=== PATIENT | female | born 1940 | race Hispanic/Latino ===

== ENCOUNTER 2018-11-07 14:07 | Inpatient (IN) | payer MEDICARE ==
[~2018-11-07] VITALS: Ht 147.3 cm; Wt 65.8 kg
[2018-11-07] MEDS ORDERED: SIMVASTATIN20 MG PO (14:39)
[2018-11-07] MEDS ORDERED: DORZOLAMIDE-TIM10 ML OP (14:39)
[2018-11-07] MEDS ORDERED: ASPIR 8181 MG PO (14:39)
[2018-11-07] MEDS ORDERED: LUMIGAN2.5 M1 OP (14:39)
[2018-11-07] MEDS ORDERED: BISOPROLOL HCTZ (14:39)
--- NOTE | 2018-11-07 15:22 | Diagnostic Imaging Report ---
ADDENDUM #1 Agree with the preliminary report. Signed by: DR Jairon Sinha M.D. on 11/07/2018 6:36 PM ORIGINAL REPORT Exam: Noncontrast Head CT History: 78-year-old female with dizziness and shakes Comparison studies: None Technique: Axial images were obtained from the skull base to the vertex. Coronal and sagittal reconstructions obtained from the axial data. Dose modulation, iterative reconstruction, and/or weight based adjustment of the mA/kV was utilized to reduce the radiation dose to as low as reasonably achievable. Findings: Scalp/skull: No abnormalities. No fractures, blastic or lytic lesions. Extra-axial spaces: No masses. No fluid collections. Brain sulci: Appropriate for age. Ventricles: Normal in size and configuration. No hydrocephalus. Parenchyma: Mild diffuse subcortical and periventricular white matter hypodensities specific, however likely represents sequela microvascular ischemic angiopathy. No masses, hemorrhage, acute or chronic cortical vascular insults. Sellar/suprasellar region: No abnormalities Craniocervical junction: Patent foramen magnum. No Chiari one malformation. IMPRESSION: No acute abnormalities. Chronic findings: Mild chronic white matter microvascular ischemic changes. Report dictated by neuroradiology fellow. Final read to follow. Signed by: Augustus David MD on 11/07/2018 4:32 PM
--- NOTE | 2018-11-07 15:49 | NUR ---
CALLED [facility] FOR TRANSPORT Addendum: 11/07/18 at 1550 by AG SPOKE TO ALISA MYERS
--- NOTE | 2018-11-07 17:37 | NUR ---
2 ATTMEPTS AT REPORT
[2018-11-07] MEDS ORDERED: ONDANSETRON HCL INJ 2MG/ML 2ML 2 MG/ML VIAL IV PRN (18:00)
[2018-11-07] MEDS ORDERED: ACETAMINOPHEN 325 MG TAB PO PRN (18:00)
[2018-11-07] MEDS ORDERED: HYDRALAZINE HCL 20 MG/ML VIAL IV PRN (18:00)
[2018-11-07 18:29] VITALS: BP 177/78
[2018-11-07 19:09] VITALS: BP 136/61
[2018-11-07 19:11] VITALS: BP 136/61
[2018-11-07] MEDS: BIMATOPROST(OPTH) 2.5 ML BOTTLE OP SCH (20:30)
[2018-11-07] MEDS: SIMVASTATIN 20 MG TAB PO SCH (20:30)
[2018-11-07 20:48] VITALS: BP 136/61
[2018-11-08] VITALS (7 sets, daily range): BP systolic 120–172; BP diastolic 57–73
[2018-11-08 03:43] LABS: BASOPHILS % 0.3 % (0.0-1.0); EOSINOPHILS # (AUTO) 0.4 (0.0-0.4); EOSINOPHILS % 3.5 % (0.0-6.0); HEMATOCRIT 38.4 % (34.2-44.1); HEMOGLOBIN 12.6 g/dL (12.0-16.0); LYMPHOCYTES # (AUTO) 2.9 (1.0-3.2); LYMPHOCYTES % 26.5 % (18.0-39.1); MEAN CORPUSCULAR HEMOGLOBIN 30.7 pg (28-32); MEAN CORPUSCULAR HGB CONC 32.8 g/dL (31-35); MEAN CORPUSCULAR VOLUME 93.7 fL (81-99); MONOCYTES # (AUTO) 0.9 (0.2-0.8); MONOCYTES % 8.4 % (4.4-11.3); NEUTROPHILS # (AUTO) 6.7 (2.1-6.9); NEUTROPHILS % 60.8 % (38.7-80.0); PLATELET COUNT 212 x10e3/uL (140-360); RED CELL DISTRIBUTION WIDTH 13.2 % (11.7-14.4)
[2018-11-08 03:59] LABS: ALANINE AMINOTRANSFERASE 16 IU/L (0-55); ALBUMIN 3.5 g/dL (3.5-5.0); ALBUMIN/GLOBULIN RATIO 0.9 (0.8-2.0); ALKALINE PHOSPHATASE 100 IU/L (40-150); ANION GAP 13.2 mmol/L (8-16); BLOOD UREA NITROGEN 20 mg/dL (7-26); BUN/CREATININE RATIO 28 (6-25); CALCIUM 9.7 mg/dL (8.4-10.2); CARBON DIOXIDE 25 mmol/L (22-29); CHLORIDE 105 mmol/L (98-107); CHOL/HDL RATIO 2.1 (3.0-3.6); CREATININE, SERUM 0.72 mg/dL (0.57-1.11); EST GLOMERULAR FILTRATION RATE > 60 ML/MIN (60-); GLUCOSE 108 mg/dL (74-118); MAGNESIUM 2.4 MG/DL (1.3-2.1); POTASSIUM 4.2 mmol/L (3.5-5.1); SODIUM 139 mmol/L (136-145)
[2018-11-08 04:06] LABS: B-TYPE NATRIURETIC PEPTIDE2 61.4 pg/mL (0-100)
[2018-11-08 04:21] LABS: FREE T4 (FREE THYROXINE) 1.15 ng/dL (0.9-1.8); THYROID STIMULATING HORMONE 2.521 uIU/mL (0.350-4.940)
[2018-11-08] MEDS ORDERED: BISOPROLOL-HCT1 EAC1 PO (06:26)
[2018-11-08] MEDS ORDERED: GABAPENTIN100 MG PO (06:26)
--- NOTE | 2018-11-08 06:50 | NUR ---
report given to day nurse. patient is resting in bed. bed is in lowest position and call otero is within reach.
[2018-11-08] MEDS ORDERED: SODIUM CHLORIDE 0.9% 250ML 250 ML ONE (06:57)
[2018-11-08] MEDS: CEFTRIAXONE SOD 1 GM/NS 50 ML 50 ML IV SCH (07:14)
[2018-11-08 07:19] LABS: CLARITY,URINE SL CLOUDY (CLEAR); COLOR,URINE YELLOW (YELLOW)
[2018-11-08 07:20] LABS: BILIRUBIN,URINE NEGATIVE (NEGATIVE); KETONES,URINE NEGATIVE (NEGATIVE); LEUKOCYTE ESTERASE ,URINE 1+ (NEGATIVE); NITRITE,URINE POSITIVE (NEGATIVE); PROTEIN,URINE DIPSTICK TRACE (NEGATIVE); URINE UROBILINOGEN 0.2 mg/dL (0.2 - 1)
[2018-11-08 07:51] LABS: BACTERIA,URINE MANY /HPF; WBC,URINE (MAN) 21-50 /HPF (0-5)
[2018-11-08 07:52] LABS: MUCUS,URINE FEW (RARE)
--- NOTE | 2018-11-08 08:10 | Diagnostic Imaging Report ---
Examination: Single AP view of the chest. COMPARISON: None. INDICATION: Dizziness, vertigo, rule out pneumonia IMPRESSION: 1. Lines and Tubes: None 2. Lungs are grossly clear. No consolidation or effusion. 3. Cardiomediastinal silhouette is normal. Pulmonary vasculature is normal. 4. No acute bony abnormalities. Signed by: Dr. Shivam Espinoza M.D. on 11/08/2018 8:07 AM
[2018-11-08] MEDS ORDERED: BISOPROLOL/HCTZ 5/6.25MG TAB PO SCH (09:00)
[2018-11-08] MEDS: ASPIRIN 325 MG TAB PO SCH (09:03)
[2018-11-08] MEDS: GABAPENTIN 100 MG CAP PO SCH ×3 (09:03→21:50)
[2018-11-08] MEDS: FAMOTIDINE 20 MG TAB PO SCH ×2 (09:03→16:25)
[2018-11-08] MEDS: LORATADINE 10 MG TAB PO SCH (09:03)
[2018-11-08] MEDS: GUAIFENESIN 600 MG TAB PO SCH ×2 (09:03→16:25)
[2018-11-08] MEDS: DORZOLAMIDE/TIMOLOL/PF 1 EACH DROPERETTE OP SCH ×2 (09:08→16:25)
[2018-11-08 11:18] LABS: CREATINE KINASE MB 0.8 ng/mL (0-5.0)
--- NOTE | 2018-11-08 12:34 | Diagnostic Imaging Report ---
History: Dizziness, vertigo Comparison studies: Head CT of 11/07/2018 Technique: Sagittal T2; axial DWI, FLAIR, MPGR, T1, Coronal FLAIR. Intravenous contrast: None Findings: Scalp: Normal in signal . No masses . Bone marrow: Normal in signal intensity. Extra-axial: No masses or fluid collections. Brain sulci: Appropriate for age. Ventricles: Normal in size . No hydrocephalus . Parenchyma: Confluent T2 FLAIR hyperintense foci in the supratentorial periventricular white matter, multiple discrete foci in the adjacent deep white matter and additional foci in the mary grace are nonspecific small vessel ischemic changes. No masses, hemorrhage, acute or chronic cortical ischemic insults. Suprasellar region: No abnormalities. Craniocervical junction: No abnormalities. Patent foramen magnum. No Chiari one malformation. Vessels: Normal flow-voids in the arteries and sinuses. IMPRESSION: 1. Moderate supratentorial white matter small vessel ischemic changes. 2. Otherwise, no abnormalities. Signed by: Dr. Ellis Sanford M.D. on 11/08/2018 12:31 PM
[2018-11-08] MEDS ORDERED: ONDANSETRON HCL 4 MG ORAL DISINTEGRATING TAB PO PRN (16:00)
[2018-11-08] MEDS: BISOPROLOL/HCTZ 5/6.25MG TAB PO SCH (16:17)
--- NOTE | 2018-11-08 18:25 | Consultation ---
DATE OF CONSULTATION: 11/08/2018 Neurology Consult Note HISTORY OF PRESENT ILLNESS: Ms. Vega is a 78-year-old right-hand dominant woman with past medical history significant for hypertension and hyperlipidemia, admitted to [facility] on November 07, 2018 with dizziness. Beginning approximately 2 days prior to admission, the patient began to experience intermittent dizziness, which is further described as vertiginous sensation. The vertiginous sensation is triggered by movements. Specifically, sitting up, lying down, or turning to the right, especially when these movements are done quickly. When present, the vertiginous sensation persists for approximately 1 minute or less. There is no blurred vision associated with the vertigo. Ms. Vega does report multiple instances of nausea without vomiting associated with the vertigo. Ms. Vega has experienced similar symptoms previously. When she previously experienced these symptoms, Ms. Vega was instructed to perform a certain maneuver to bring about resolution of the symptoms. The patient did attempt performing this maneuver, but it only worsened her vertigo. For the past 1 month, the patient has experienced a sensation of fullness behind the right ear. Ms. Vega endorses rhinorrhea with postnasal drip. She does not report fever or chills, productive cough, or tinnitus. Ms. Vega does report intermittent wheezing. She does not report recent falls. Ms. Vega has seen her primary care physician twice in the past month regarding the above symptoms. Initially, she was given medication for seasonal allergies, but this did not improve her symptoms. More recently, the patient was given an albuterol inhaler to use on an as-needed basis for wheezing. The patient presented to the emergency center at [facility] on November 07, 2018 for further evaluation of her symptoms. Upon arrival in the emergency center, the patient was afebrile with a blood pressure of 167/71 mmHg and a pulse of 77 beats per minute. Her neurological examination was documented as being nonfocal. A CT of the brain without contrast was performed while the patient was in the emergency center. This study did not reveal evidence of recent large territorial ischemia or hemorrhage. Ms. Vega was admitted to [facility] under observation status for further evaluation and treatment of her symptoms. REVIEW OF SYSTEMS: Bilateral hearing loss (chronic), nausea, rhinorrhea, postnasal drip, dizziness further described as a vertiginous sensation. Otherwise, a 12-point review of systems is negative. PAST MEDICAL HISTORY: Hypertension, hyperlipidemia, fatty liver disease, glaucoma, bilateral cataracts. PAST SURGICAL HISTORY: Appendectomy, right trigger finger release, hysterectomy, colonoscopy. PAST HOSPITALIZATIONS: Surgeries/procedures as listed, head injury/concussion 2 years ago. FAMILY MEDICAL HISTORY: Diabetes mellitus, coronary artery disease, congestive heart failure, Parkinson disease. SOCIAL HISTORY: The patient is . She is retired. The patient does not report current or prior tobacco, alcohol, or recreational drug use. HOME MEDICATIONS: Aspirin 81 mg by mouth daily, bisoprolol/hydrochlorothiazide 5-6.25 mg one tablet by mouth daily, simvastatin 20 mg by mouth at bedtime daily, gabapentin 100 mg by mouth three times daily, Lumigan 2.5 mL in both eyes at bedtime daily, dorzolamide/timolol one drop in each eye twice daily. HOSPITAL MEDICATIONS: Tylenol, aspirin, Lumigan, ceftriaxone, Pepcid, Neurontin, Mucinex, hydralazine, loratadine, dorzolamide/timolol, Zofran, simvastatin. ALLERGIES: PENICILLIN, CODEINE, PHENOBARBITAL. NO KNOWN FOOD ALLERGIES. NO KNOWN ALLERGIES TO LATEX. NO KNOWN ALLERGIES TO IODINE OR OTHER CONTRAST MATERIALS. PHYSICAL EXAMINATION: VITAL SIGNS: Height 58 inches, weight 145 pounds, BMI 30.3 kg/m2, blood pressure 172/73 mmHg, pulse 68 beats per minute, respiratory rate 20 breaths per minute, and oxygen saturation 97% on room air. GENERAL: The patient is awake and alert, does not appear distressed. Overweight. HEENT: Normocephalic, atraumatic. Pupils are equal, round, and reactive to light. Moist mucous membranes. NECK: Supple. No appreciable thyromegaly. No appreciable carotid bruits. CARDIOVASCULAR: S1, S2, regular rate and rhythm. No murmurs, rubs, or gallops. RESPIRATORY: Clear to auscultation bilaterally. No wheezes, rhonchi, or rales. EXTREMITIES: The skin is warm and dry. No clubbing, cyanosis, or edema. The posterior tibial and dorsalis pedis pulses are 2+ and symmetric. SKIN: No rashes or lesions. NEUROLOGIC: Memory/Attention: The patient is awake and alert, oriented to person, place, time, and situation. Cranial Nerves: Cranial nerve I - not tested. Cranial nerve II, III, IV, and - pupils are equal and round, react briskly to light (from 4 mm to 2 mm). Extraocular movements intact. No nystagmus. Cranial nerve V - sensation to light touch and pinprick is intact in the bilateral V1 through V3 distributions. Strength in the temporalis and masseter muscles are within normal limits. Cranial nerve VII - the face is symmetric as are all facial movements. Strength is within normal limits. Cranial nerve VIII - hearing is diminished to finger rub bilaterally. Cranial nerve IX, X - the soft palate elevates equally and symmetrically. Cranial nerve XI - normal strength of the bilateral sternocleidomastoid and trapezius muscles. Cranial nerve XII - the tongue protrudes midline and moves symmetrically from moxy-qb-qmun. STRENGTH: Bulk is normal . Strength is 5/5 in the bilateral deltoids, biceps, triceps, wrist flexors and extensors, finger flexors and extensors, intrinsic hand muscles, hip flexors, knee flexors and extensors, ankle dorsiflexion and plantar flexion, and intrinsic foot muscles. Tone is normal. DEEP TENDON REFLEXES: Deep tendon reflexes are 2+ and symmetric at the triceps, biceps, brachioradialis, and patellas. Deep tendon reflexes are 1+ and symmetric at the Achilles. Plantar responses are flexor bilaterally. SENSATION: Sensation is intact to light touch and pinprick in both arms and both legs. CEREBELLAR: Dgrjsv-hxkj-pfbsie and heel-torres movements are intact without dysmetria or other impairment. GAIT: Deferred. SPEECH: Spontaneous speech is normal without appreciable dysarthria or aphasia. Repetition is intact. INVOLUNTARY MOVEMENTS: None. PRONATOR DRIFT: None. LABORATORY DATA: A comprehensive metabolic panel is unremarkable. Cardiac enzymes are negative x1. Hemoglobin A1c 5.8. Total cholesterol 150, triglycerides 147, LDL cholesterol 49, HDL cholesterol 72. B-natriuretic peptide 61.4. TSH 2.521, free T4 1.15. CBC with differential and platelets is unremarkable. A urinalysis reveals slightly cloudy urine with a specific gravity of 1.030, trace protein, 2+ blood, positive nitrites, 1+ leukocyte esterase, 6-10 red blood cells, 21-50 white blood cells, many urine bacteria, and few mucus. A urine culture is pending. DIAGNOSTIC STUDIES: Electrocardiogram of 11/07/2018: Normal sinus rhythm at [address] of the brain without contrast on 11/07/2018: On my review, there is no evidence of recent large territorial ischemia, hemorrhage, mass, or mass effect. Cerebral volumes are appropriate for age. There are findings compatible with [id number] chronic small-vessel ischemic disease. Chest x-ray 11/08/2018: 1. Lines and tubes: None. 2. Lungs are grossly clear. No consolidation or effusion. 3. Cardiomediastinal silhouette is normal. Pulmonary vasculature is normal. 4. No acute bony abnormalities. MRI of the brain without contrast on 11/08/2018: On my review, there is no evidence of recent large territorial ischemia, hemorrhage, mass, or mass effect. Cerebral volumes are appropriate for age. There are scattered confluent T2/FLAIR hyperintense foci in the supratentorial and infratentorial white matter compatible with moderate chronic small vessel ischemic disease. Ms. Vega is a 78-year-old right-hand dominant woman with past medical history as detailed admitted to [facility] on November 07, 2018 with intermittent vertigo and nausea. At present, the patient's neurological examination is nonfocal. Her laboratory data and other diagnostic studies have been reviewed and are documented above. In my opinion, Ms. Vega's intermittent vertigo is probably due to benign paroxysmal positional vertigo affecting the right ear. It is recommended the patient be referred to physical therapy as an outpatient for vestibular exercises. Thank you for this consultation. Please call again with any questions or concerns. Gisselle Rodney MD CP/SAL /[id number] MTDD
--- NOTE | 2018-11-08 19:00 | NUR ---
RECEIVED REPORT FROM DAY NURSE.PATIENT IS RESTING COMFORTABLY IN BED. BED IS IN LOWEST POSITION AND CALL HANSON IS WITHIN REACH. WILL CONTINUE TO MONITOR PATIENT.
[2018-11-08] MEDS: SIMVASTATIN 20 MG TAB PO SCH (21:50)
[2018-11-08] MEDS: BIMATOPROST(OPTH) 2.5 ML BOTTLE OP SCH (21:50)
[2018-11-09] VITALS (8 sets, daily range): BP systolic 128–158; BP diastolic 60–76
[2018-11-09] MEDS: CEFTRIAXONE SOD 1 GM/NS 50 ML 50 ML IV SCH (05:17)
[2018-11-09 06:00] LABS: BASOPHILS % 0.4 % (0.0-1.0); EOSINOPHILS # (AUTO) 0.3 (0.0-0.4); EOSINOPHILS % 4.4 % (0.0-6.0); HEMATOCRIT 37.9 % (34.2-44.1); HEMOGLOBIN 12.1 g/dL (12.0-16.0); LYMPHOCYTES # (AUTO) 2.3 (1.0-3.2); LYMPHOCYTES % 29.8 % (18.0-39.1); MEAN CORPUSCULAR HEMOGLOBIN 30.4 pg (28-32); MEAN CORPUSCULAR HGB CONC 31.9 g/dL (31-35); MEAN CORPUSCULAR VOLUME 95.2 fL (81-99); MONOCYTES # (AUTO) 0.7 (0.2-0.8); MONOCYTES % 9.4 % (4.4-11.3); NEUTROPHILS # (AUTO) 4.3 (2.1-6.9); NEUTROPHILS % 55.6 % (38.7-80.0); PLATELET COUNT 183 x10e3/uL (140-360); RED BLOOD COUNT 3.98 x10e6/uL (3.6-5.1); RED CELL DISTRIBUTION WIDTH 13.2 % (11.7-14.4)
[2018-11-09 06:19] LABS: ANION GAP 11.8 mmol/L (8-16); BLOOD UREA NITROGEN 21 mg/dL (7-26); BUN/CREATININE RATIO 29 (6-25); CALCIUM 9.1 mg/dL (8.4-10.2); CARBON DIOXIDE 28 mmol/L (22-29); CHLORIDE 106 mmol/L (98-107); CREATININE, SERUM 0.72 mg/dL (0.57-1.11); EST GLOMERULAR FILTRATION RATE > 60 ML/MIN (60-); GLUCOSE 112 mg/dL (74-118); MAGNESIUM 2.1 MG/DL (1.3-2.1); POTASSIUM 4.8 mmol/L (3.5-5.1); SODIUM 141 mmol/L (136-145)
[2018-11-09] MEDS ORDERED: MECLIZINE HCL 12.5 MG TAB PO PRN (06:45)
--- NOTE | 2018-11-09 06:48 | NUR ---
report given to day nurse. patient is resting comfortably in bed. bed is in lowest position and call light is within reach.
--- NOTE | 2018-11-09 06:53 | NUR ---
Walking rounds done. patient resting in bed in NAD. Daughter at the bedside. Both instructed to call for assistance and verbalized understanding.
--- NOTE | 2018-11-09 08:16 | NUR ---
ORDER TO ARRANGE OP VESTIBULAR EXCERCISES MET WITH PT AND FAMILY PT DOES HAVE TRANSPORTATION FOR OP SERVICES CHOICE LETTER SIGNED FOR [facility] OP CHOICE LETTER ON CHART AND COPY TO PT CM CALLED [facility] OP PT PH [phone]; SPOKE WITH JEN AND CONFIRMED THEY ARE IN NETWORK WITH [facility] AND CAN PROVIDE VESTIBULAR EXCERCISES FAXED ORDER AND FACE SHEET TO [phone]; CONFIRMATION REC'D THEY WILL CALL PT AND SCHEDULE APPT DC PENDING UA CX RESULTS
[2018-11-09] MEDS: BISOPROLOL/HCTZ 5/6.25MG TAB PO SCH (09:00)
[2018-11-09] MEDS: GUAIFENESIN 600 MG TAB PO SCH ×2 (09:36→16:51)
[2018-11-09] MEDS: ASPIRIN 325 MG TAB PO SCH (09:36)
[2018-11-09] MEDS: GABAPENTIN 100 MG CAP PO SCH ×3 (09:36→21:00)
[2018-11-09] MEDS: FAMOTIDINE 20 MG TAB PO SCH ×2 (09:36→16:51)
[2018-11-09] MEDS: LORATADINE 10 MG TAB PO SCH (09:36)
[2018-11-09] MEDS: DORZOLAMIDE/TIMOLOL/PF 1 EACH DROPERETTE OP SCH ×2 (09:37→16:51)
--- NOTE | 2018-11-09 20:00 | NUR ---
INITIAL ASSESSMENT COMPLETE, CALL LIGHT IN REACH, FAMILY AT BEDSIDE, NO DISTRESS NOTED, VS STABLE, TOLD TO CALL FOR NEEDS
[2018-11-09] MEDS: BIMATOPROST(OPTH) 2.5 ML BOTTLE OP SCH (21:00)
[2018-11-09] MEDS: SIMVASTATIN 20 MG TAB PO SCH (21:00)
[2018-11-10 00:06] VITALS: BP 126/59
[2018-11-10 05:45] VITALS: BP 105/51
[2018-11-10 05:50] LABS: BASOPHILS % 0.4 % (0.0-1.0); EOSINOPHILS # (AUTO) 0.4 (0.0-0.4); EOSINOPHILS % 5.5 % (0.0-6.0); HEMATOCRIT 37.8 % (34.2-44.1); HEMOGLOBIN 12.1 g/dL (12.0-16.0); LYMPHOCYTES # (AUTO) 2.9 (1.0-3.2); LYMPHOCYTES % 35.8 % (18.0-39.1); MEAN CORPUSCULAR HEMOGLOBIN 30.5 pg (28-32); MEAN CORPUSCULAR VOLUME 95.2 fL (81-99); MONOCYTES # (AUTO) 0.7 (0.2-0.8); MONOCYTES % 8.8 % (4.4-11.3); NEUTROPHILS # (AUTO) 3.9 (2.1-6.9); NEUTROPHILS % 49.1 % (38.7-80.0); PLATELET COUNT 192 x10e3/uL (140-360); RED BLOOD COUNT 3.97 x10e6/uL (3.6-5.1); RED CELL DISTRIBUTION WIDTH 13.2 % (11.7-14.4)
[2018-11-10 06:09] LABS: ANION GAP 12.4 mmol/L (8-16); BLOOD UREA NITROGEN 16 mg/dL (7-26); BUN/CREATININE RATIO 22 (6-25); CALCIUM 9.1 mg/dL (8.4-10.2); CARBON DIOXIDE 26 mmol/L (22-29); CHLORIDE 103 mmol/L (98-107); CREATININE, SERUM 0.74 mg/dL (0.57-1.11); EST GLOMERULAR FILTRATION RATE > 60 ML/MIN (60-); GLUCOSE 112 mg/dL (74-118); MAGNESIUM 2.2 MG/DL (1.3-2.1); POTASSIUM 4.4 mmol/L (3.5-5.1); SODIUM 137 mmol/L (136-145)
[2018-11-10] MEDS: CEFTRIAXONE SOD 1 GM/NS 50 ML 50 ML IV SCH (06:30)
--- NOTE | 2018-11-10 07:00 | NUR ---
Walking rounds done. Patient is awake and alert x4. IV leaking per night nurse and will evaluate. POC discussed. Bed in lowest position, locked and call otero within reach.
[2018-11-10] MEDS: FAMOTIDINE 20 MG TAB PO SCH (08:41)
[2018-11-10] MEDS: GABAPENTIN 100 MG CAP PO SCH (08:42)
[2018-11-10] MEDS: BISOPROLOL/HCTZ 5/6.25MG TAB PO SCH (08:42)
[2018-11-10] MEDS: GUAIFENESIN 600 MG TAB PO SCH (08:42)
[2018-11-10] MEDS: ASPIRIN 325 MG TAB PO SCH (08:42)
[2018-11-10] MEDS: LORATADINE 10 MG TAB PO SCH (08:42)
[2018-11-10 08:54] VITALS: BP 149/70
[2018-11-10] MEDS: DORZOLAMIDE/TIMOLOL/PF 1 EACH DROPERETTE OP SCH (09:08)
[2018-11-10 09:24] VITALS: BP 149/70
--- NOTE | 2018-11-10 11:40 | NUR ---
Spoke to Aditya Arias NP, notified of no IV access and urine culture results. Received orders to start Ciprofloxacin 500mg PO BID in place of IV Rocephin. Patient and daughter aware.
[2018-11-10] MEDS ORDERED: CIPROFLOXACIN 500 MG TAB PO SCH (12:00)
[2018-11-10 12:15] VITALS: BP 177/80
[2018-11-10] MEDS ORDERED: LORATADINE10 MG PO (14:30)
[2018-11-10] MEDS ORDERED: Meclizine Hcl PO (14:30)
[2018-11-10] MEDS ORDERED: CIPROFLOXACIN500 MG PO (14:30)
--- NOTE | 2018-11-10 15:20 | NUR ---
Yanelis Arias NP making rounds. patient will be discharged today
--- NOTE | 2018-11-10 15:46 | NUR ---
patient discharged home in stable condition with written instructions and prescriptions. Patient verbalized understanding. daughter to take home.
[2018-11-10 16:19] VITALS: BP 164/91
--- NOTE | 2018-11-11 07:53 | Discharge Summary ---
CHIEF COMPLAINT: Dizziness. PERTINENT HISTORY AND PHYSICAL FINDINGS: A [id number]-female, who was admitted with intermittent vertigo over the last few years, complaining of sinus drainage and dry cough about a month ago, she has a past medical history bronchitis, she went to her PCP and got a prescription without improvement. The patient believes this is attributed to her dizziness that began day prior to admission. Dizziness worsened throughout the day and taking meclizine did not help. Symptoms are worse with her lying flat. She had associated nausea. Denied vomiting, diarrhea, or fever. PAST MEDICAL HISTORY: Includes hypertension, hyperlipidemia, bilateral cataracts, glaucoma, osteoporosis, arthritis, vertigo, bilateral hearing loss, and lumbar radiculopathy. PAST SURGICAL HISTORY: Includes hysterectomy, right hand trigger thumb, and appendectomy. FAMILY HISTORY: Daughter has diabetes and daughter has CVA. ALLERGIES: SHE HAS ALLERGIES TO PENICILLIN, CODEINE, PHENOBARBITAL. ADMITTING DIAGNOSES: Include: 1. Dizziness. 2. Urinary tract infection present on her admission. 3. Hypertension. 4. Hyperlipidemia. 5. Glaucoma. 6. Cervical radiculopathy. 7. Cough. DISCHARGE DIAGNOSES: Include: 1. Benign paroxysmal positional vertigo. 2. Escherichia coli urinary tract infection, present on admission. 3. Hypertension. 4. Hyperlipidemia. 5. Glaucoma. 6. Cervical radiculopathy. 7. Cough. PERTINENT LABS: WBC on admission 10.99, WBC today 8.0. On admission, BUN 20, creatinine 0.72, GFR greater than 60. Urinalysis showed urine specific gravity 1.03, urine protein trace amount, 2+ blood in the urine, nitrite positive, leukocyte esterase 1+, RBC 6 to 10, WBC 21 to 50, many bacteria, few mucus. Microbiology showed pansensitive Escherichia coli. On 11/07, the CT of the brain showed no chronic white matter microvascular ischemic changes. Preliminary report of bilateral carotid doppler, arterial ultrasound showed no evidence of significant carotid stenosis. EKG showed normal sinus rhythm, ventricular rate 76. Chest x-ray was negative. Repeat CT of the brain done on 11/08 showed moderate supratentorial white matter small vessel ischemic changes, otherwise no abnormalities. Consulting Physicians included Dr. Gisselle Rodney of Neurology. Per her documentation, the intermittent vertigo is probably due to benign paroxysmal positional vertigo affecting the right ear and it was recommended that the patient be referred to Physical Therapy as an outpatient for vestibular exercises and order for such was entered for case management. Today on the day of discharge, vital signs include temperature 96.1, heart rate 79, respirations 20, blood pressure 177/80 with MAP of 112, pulse oximetry 94% on room air. Physical examination is unchanged. Also on the patient . Cardiac diet. Activity level as tolerated. Meclizine p.r.n. Continue loratadine and ciprofloxacin 500 mg p.o. b.i.d. for 7 days for the UTI. Dictated by Aditya Arias, RENEE MD DONTRELL [place]/SAL /[id number]
== END 2018-11-10 15:37 | disposition home or self-care (01) | DRG 149 ==
LOC: FSED 14:07 → ERHOLD 15:39 → IMCU 18:16 → OBSVTOIN 11-09 11:31
PROVIDERS: ADMIT Internal Medicine; ATTEND Internal Medicine
DX: H81.10 Benign paroxysmal vertigo, unspecified ear (principal); N39.0 Urinary tract infection, site not specified; B96.20 Unspecified Escherichia coli [E. coli] as the cause of diseases classified elsewhere; I10 Essential (primary) hypertension
CPT/HCPCS: 36415; 70450; 70551; 71045; 80048; 80053; 80061; 81001; 81003; 82550; 82553; 83036; 83735; 83880; 84439; 84443; 84484; 85025; 87086; 87186; 93005; 93880; 99284; G0378; J0696; J7050